=== PATIENT | female | born 1995 | race Caucasian/White ===

== ENCOUNTER 2017-08-09 11:58 | Emergency (ER) | payer OTHER ==
[~2017-08-09] VITALS: Ht 160 cm; Wt 52.6 kg
[2017-08-09 12:26] VITALS: Ht 160 cm; Wt 52.6 kg
[2017-08-09] MEDS ORDERED: SODIUM CHLORIDE 0.9% 1000ML 1,000 ML IV STA (13:22)
[2017-08-09] MEDS ORDERED: ONDANSETRON INJ 2 MG/ML 2 ML VIAL IV STA (13:22)
--- NOTE | 2017-08-09 13:50 | DIAGNOSTIC IMAGING REPORT ---
CHEST ONE VIEW PORTABLE CLINICAL HISTORY: Flulike symptoms. COMPARISON STUDY: No previous studies for comparison. FINDINGS: Lung volumes are normal. No pneumothorax or pleural effusion is noted. Lungs are clear. Cardiac size is normal. Mediastinal contours are normal. There is no evidence for pulmonary edema. IMPRESSION: No acute cardiopulmonary findings. Electronically signed by: Shree Klein M.D. 08/09/2017 1:49 PM Dictated Date/Time: 08/09/2017 1:49 PM
[2017-08-09 14:06] VITALS: TEMP 37.3
[2017-08-09 14:19] LABS: BASO % 0.6 %; BASO ABS # 0.03 K/uL (0-0.2); EOS % 0.8 %; EOS ABS # 0.04 K/uL (0-0.5); HEMATOCRIT 40.1 % (37-47); HEMOGLOBIN 13.6 g/dL (12.0-16.0); IG# 0.01 K/uL (0.00-0.02); LYMPH % 26.2 %; LYMPH ABS # 1.33 K/uL (1.2-3.4); MEAN CELL VOLUME 87.6 fL (80-100); MEAN CORPUSCULAR HEMOGLOBIN 29.7 pg (25-34); MEAN CORPUSCULAR HGB CONC 33.9 g/dl (32-36); MEAN PLATELET VOLUME 11.1 fL (7.4-10.4); MONO % 8.7 %; MONO ABS # 0.44 K/uL (0.11-0.59); NEUT % 63.5 %; NEUT ABS # 3.23 K/uL (1.4-6.5); PLATELET COUNT 292 K/uL (130-400); RED CELL DISTRIBUTION WIDTH CV 14.6 % (11.5-14.5); RED CELL DISTRIBUTION WIDTH SD 46.3 fL (36.4-46.3); WHITE BLOOD COUNT 5.08 K/uL (4.8-10.8)
[2017-08-09 14:27] LABS: ALBUMIN 4.1 gm/dl (3.4-5.0); CALCIUM 9.3 mg/dl (8.5-10.1); CREATININE 0.65 mg/dl (0.60-1.20)
[2017-08-09 14:29] LABS: TOTAL PROTEIN 7.8 gm/dl (6.4-8.2)
--- NOTE | 2017-08-09 14:53 | EMERGENCY ROOM VISIT NOTE ---
History First contact with patient: 13:02 Chief Complaint: FLU LIKE SX Stated Complaint: BODY ACHES, HEADACHE,NAUSEA,VOMITING History of Present Illness The patient is a 21 year old female who presents to the Emergency Room with complaints of flulike symptoms. The patient reports that she has had body aches all week. She states that yesterday, she developed a headache and felt dizzy throughout the day. She tried to eat something but states that she vomited immediately afterwards. She had one other episode of vomiting throughout the night. She was unable to sleep due to the nausea. She reports some mild upper abdominal pain. She has had one episode of diarrhea. She has a mild headache at this time. Her nausea has improved slightly. She reports some mild nasal congestion. She denies cough, earaches, neck pain/stiffness, shortness of breath or sore throat. She denies fevers. She rates her overall discomfort 5/10. She called [facility] today but they were unable to make her an appointment until later this afternoon. Review of Systems A complete 10 point review of systems was reviewed with the patient with pertinent positives and negatives as per history of present illness. All else were negative. Past Medical/Surgical History Medical Problems: (1) Irritable bowel syndrome Family History Diabetes mellitus FHx: cancer FHx: heart disease Hypertension Social History Smoking Status: Current Some Day Smoker Alcohol Use: occasionally Housing Status: lives with roommate Occupation Status: [employer] Current/Historical Medications Scheduled Ondasetron Odt (Zofran Odt), 4 MG SL Q6H Physical Exam Vital Signs Date Time Temp Pulse Resp B/P (MAP) Pulse Ox O2 Delivery O2 Flow Rate FiO2 08/09/17 15:40 56 18 103/57 100 Room Air 08/09/17 14:06 37.3 57 18 106/60 100 Room Air 08/09/17 12:26 36.9 56 18 106/52 99 Room Air Physical Exam VITALS: Vitals are noted on the nurse's note and reviewed by myself. Vital signs stable. GENERAL: This is a 21-year-old female, in no acute distress, nondiaphoretic, well-developed well-nourished. SKIN: The skin was without rashes. EARS: External auditory canals clear, tympanic membranes pearly pablo without erythema or effusion bilaterally. EYES: Pupils equal round and reactive to light and accommodation. NOSE: Patent, turbinates without inflammation or discharge. MOUTH: Mucous membranes moist. Tonsils are not enlarged. Pharynx without erythema or exudate. NECK: Supple without nuchal rigidity. No lymphadenopathy. No meningismus. HEART: Regular rate and rhythm without murmurs gallops or rubs. LUNGS: Clear to auscultation bilaterally without wheezes, rales or rhonchi. No retractions or accessory muscle use. ABDOMEN: Positive bowel sounds x 4. Soft, mild tenderness in the epigastric region. No guarding or rebound tenderness. NEURO: Patient was alert and oriented to person place and time. Medical Decision & Procedures ER Provider Diagnostic Interpretation: CHEST ONE VIEW PORTABLE CLINICAL HISTORY: Flulike symptoms. COMPARISON STUDY: No previous studies for comparison. FINDINGS: Lung volumes are normal. No pneumothorax or pleural effusion is noted. Lungs are clear. Cardiac size is normal. Mediastinal contours are normal. There is no evidence for pulmonary edema. IMPRESSION: No acute cardiopulmonary findings. Laboratory Results 08/09/17 13:54 Red Blood Count 4.58, Mean Corpuscular Volume 87.6, Mean Corpuscular Hemoglobin 29.7, Mean Corpuscular Hemoglobin Concent 33.9, Mean Platelet Volume 11.1, Neutrophils (%) (Auto) 63.5, Lymphocytes (%) (Auto) 26.2, Monocytes (%) (Auto) 8.7, Eosinophils (%) (Auto) 0.8, Basophils (%) (Auto) 0.6, Neutrophils # (Auto) 3.23, Lymphocytes # (Auto) 1.33, Monocytes # (Auto) 0.44, Eosinophils # (Auto) 0.04, Basophils # (Auto) 0.03 08/09/17 13:54 Test 08/09/17 13:54 08/09/17 14:10 White Blood Count 5.08 K/uL (4.8-10.8) Red Blood Count 4.58 M/uL (4.2-5.4) Hemoglobin 13.6 g/dL (12.0-16.0) Hematocrit 40.1 % (37-47) Mean Corpuscular Volume 87.6 fL (80-100) Mean Corpuscular Hemoglobin 29.7 pg (25-34) Mean Corpuscular Hemoglobin Concent 33.9 g/dl (32-36) Platelet Count 292 K/uL (130-400) Mean Platelet Volume 11.1 fL (7.4-10.4) Neutrophils (%) (Auto) 63.5 % Lymphocytes (%) (Auto) 26.2 % Monocytes (%) (Auto) 8.7 % Eosinophils (%) (Auto) 0.8 % Basophils (%) (Auto) 0.6 % Neutrophils # (Auto) 3.23 K/uL (1.4-6.5) Lymphocytes # (Auto) 1.33 K/uL (1.2-3.4) Monocytes # (Auto) 0.44 K/uL (0.11-0.59) Eosinophils # (Auto) 0.04 K/uL (0-0.5) Basophils # (Auto) 0.03 K/uL (0-0.2) RDW Standard Deviation 46.3 fL (36.4-46.3) RDW Coefficient of Variation 14.6 % (11.5-14.5) Immature Granulocyte % (Auto) 0.2 % Immature Granulocyte # (Auto) 0.01 K/uL (0.00-0.02) Anion Gap 7.0 mmol/L (3-11) Est Creatinine Clear Calc Drug Dose 115.1 ml/min Estimated GFR () 149.2 Estimated GFR (Non- 128.7 BUN/Creatinine Ratio 18.9 (10-20) Calcium Level 9.3 mg/dl (8.5-10.1) Total Bilirubin 0.4 mg/dl (0.2-1) Aspartate Amino Transf (AST/SGOT) 28 U/L (15-37) Alanine Aminotransferase (ALT/SGPT) 28 U/L (12-78) Alkaline Phosphatase 110 U/L (45-117) Total Protein 7.8 gm/dl (6.4-8.2) Albumin 4.1 gm/dl (3.4-5.0) Globulin 3.7 gm/dl (2.5-4.0) Albumin/Globulin Ratio 1.1 (0.9-2) Urine Color YELLOW Urine Appearance CLEAR (CLEAR) Urine pH 6.5 (4.5-7.5) Urine Specific Moon 1.021 (1.000-1.030) Urine Protein NEG (NEG) Urine Glucose (UA) NEG (NEG) Urine Ketones NEG (NEG) Urine Occult Blood NEG (NEG) Urine Nitrite NEG (NEG) Urine Bilirubin NEG (NEG) Urine Urobilinogen NEG (NEG) Urine Leukocyte Esterase SMALL (NEG) Urine WBC (Auto) 5-10 /hpf (0-5) Urine RBC (Auto) 10-30 /hpf (0-4) Urine Hyaline Casts (Auto) 5-10 /lpf (0-5) Urine Epithelial Cells (Auto) >30 /lpf (0-5) Urine Bacteria (Auto) 2+ (NEG) Urine Test NEG (NEG) Influenza Type A Antigen Neg for Influ A (NEG) Influenza Type B Antigen Neg for Influ B (NEG) Date/Time Source Procedure Growth Status 08/09/17 14:10 Urine , Clean Catch Urine Culture - Final MORE THAN THREE TYPES OF ORGANISMS KS... Complete Medications Administered Medications (Trade) Dose Ordered Sig/Filomena Route Start Time Stop Time Status Last Admin Dose Admin Sodium Chloride 1,000 ml @ 999 mls/hr Q1H1M STAT IV 08/09/17 13:22 08/09/17 14:22 DC 08/09/17 14:05 999 MLS/HR Ondansetron HCl (Zofran Inj) 4 mg NOW STAT IV 08/09/17 13:22 08/09/17 13:23 DC 08/09/17 13:22 4 MG Medical Decision Differential diagnosis includes influenza, pneumonia, viral illness, strep pharyngitis, among others. The patient was evaluated as above. She presents with flulike symptoms. Labs revealed no leukocytosis, anemia or concerning electrolyte abnormalities. Rapid flu testing was negative. LFTs and creatinine were within normal limits. Urinalysis was suggestive of contamination versus infection, with 2+ bacteria , greater than 30 epithelial cells and small leukocyte esterase. I discussed empiric treatment versus waiting for culture with the patient. She has no urinary symptoms and would rather wait for the culture. Patient was treated with Zofran and fluids with relief of symptoms. She was advised that she likely has a viral flulike illness. She will follow-up with [facility] as needed. Conservative measures were discussed with the patient. She verbalized understanding of my assessment and treatment plan and was discharged home in good condition. Medication Reconcilliation Current Medication List: was personally reviewed by me Blood Pressure Screening Patient's blood pressure: Normal blood pressure Impression Primary Impression: Influenza-like symptoms Departure Information Dispostion Home / Self-Care Condition GOOD Prescriptions Ondasetron Odt (ZOFRAN ODT) 4 Mg Tab 4 MG SL Q6H for Nausea, #15 TAB Prov: Sissy Solis ., OCTAVIO 08/09/17 Referrals No Doctor, Assigned (PCP) Patient Instructions My [facility] Additional Instructions You have been prescribed Zofran to be used for any nausea or vomiting. Take as prescribed. For pain control, you can use the following [id number] medicines (if >12 yo): - Regular strength (325mg/tab) Tylenol (acetaminophen) 2 tabs every 4-6 hours as needed. Do not exceed 12 tablets in a 24 hour period. Avoid taking more than 4 grams (4000 mg) of Tylenol per day. This includes any other sources of acetaminophen you may take on a regular basis. - Regular strength (200 mg/tab) Advil (ibuprofen) 1-2 tabs every 4-6 hours as needed. Do not exceed a dose of 3200 mg per day. Rest and drink plenty of fluids. Follow-up with [facility] if you have any persistent or worsening symptoms. Return to the ER with fevers, worsening abdominal pain, uncontrollable vomiting or other new/concerning symptoms.
[2017-08-09 15:15] LABS: INFLUENZA B ANTIGEN Neg for Influ B (NEG)
[2017-08-09] MEDS ORDERED: ONDA4TAB10 SL (15:26)
[2017-08-09 15:40] VITALS: BP 103/57; PULSE 56; O2SAT 100
== END 2017-08-09 15:45 | disposition home or self-care (01) ==
LOC: C.EDB 12:01 → C.EDA 15:45
DX: R69 Illness, unspecified (principal); Z83.3 Family history of diabetes mellitus; Z82.49 Family history of ischemic heart disease and other diseases of the circulatory system; F17.200 Nicotine dependence, unspecified, uncomplicated